=== PATIENT | male | born 1970 | race Caucasian/White ===

== ENCOUNTER 2020-08-02 14:28 | Emergency (ER) | payer BC ==
[2020-08-02 14:35] VITALS: TEMP 98.1
[2020-08-02] MEDS ORDERED: ONDANSETRON 4 MG/2 ML VIAL IVP STA (15:19)
[2020-08-02] MEDS ORDERED: KETOROLAC 15 MG/ML 1 ML VIAL IVP STA (15:19)
[2020-08-02] MEDS ORDERED: SODIUM CHLORIDE 0.9% 1,000 ML IV ONE (15:19)
[2020-08-02] MEDS ORDERED: MECLIZINE 12.5 MG TAB PO STA (15:19)
[2020-08-02 15:47] LABS: Basophils # (A) 0.1 k/uL (0-0.2); Basophils % (A) 1 %; Eosinophils # (A) 0.6 k/uL (0-0.7); Eosinophils % (A) 6 %; HCT 50.9 % (39.0-53.0); HGB 17.7 gm/dL (13.0-17.5); Lymphocytes % (A) 22 %; MCH 33.8 pg (25.0-35.0); MCHC 34.8 g/dL (31.0-37.0); MCV 97.1 fL (80.0-100.0); Mean Platelet Volume 7.2; Monocytes # (A) 0.9 k/uL (0-1.0); Monocytes % (A) 10 %; Neutrophils # (A) 5.2 k/uL (1.3-7.7); Neutrophils % (A) 59 %; Platelet Count 170 k/uL (150-450); RBC 5.24 m/uL (4.30-5.90); RDW 12.9 % (11.5-15.5); WBC 8.9 k/uL (3.8-10.6)
[2020-08-02 16:00] LABS: ALT 23 U/L (4-49); AST 29 U/L (17-59); African American GFR (CKD) >90 (>60 ml/min/1.73 sqM); Albumin 3.8 g/dL (3.5-5.0); Alkaline Phosphatase 60 U/L (38-126); Anion Gap 6 mmol/L; Blood Urea Nitrogen 10 mg/dL (9-20); Calcium 9.1 mg/dL (8.4-10.2); Carbon Dioxide 27 mmol/L (22-30); Chloride 105 mmol/L (98-107); Glucose 87 mg/dL (74-99); Non-African American GFR(CKD) 81 (>60 ml/min/1.73 sqM); Potassium 3.7 mmol/L (3.5-5.1); Sodium 138 mmol/L (137-145); Total Bilirubin 0.9 mg/dL (0.2-1.3); Total Protein 6.5 g/dL (6.3-8.2)
--- NOTE | 2020-08-02 16:06 | CT ---
EXAMINATION TYPE: CT mastoid wo con DATE OF EXAM: 08/02/2020 COMPARISON: None HISTORY: 49-year-old male Right ear drainage TECHNIQUE: Contiguous axial scanning of the temporal bones without IV contrast. Coronal reconstructio ns performed. CT DLP: 331.4 mGycm Automated exposure control for dose reduction was used. FINDINGS: Moderate mucosal thickening left maxillary sinus and mild to moderate throughout the ethmoid air cell s. Leftward nasal septal deviation. Previous resection into the right mastoid process. Air from the external auditory canal communicates with the resection cavity and also with the middle ear cavity. Mild opacification located within the resection cavity. There is soft tissue thickening of the tympanic membrane and partial soft tissue en casement of the malleus and partial opacification of the mesotympanum and infratemporal. On the right, remnant of the malleus is visualized. The normal incus is not visualized. There is a high riding right jugular bulb noted. The internal auditory canals are symmetrical. The facial nerve canals and bony labyrinths otherwise u nremarkable. On the left, there is minimal trapped fluid in the inferior left mastoid air cells. IMPRESSION: 1. ON THE RIGHT, THERE IS EVIDENCE OF PREVIOUS RESECTION INTO THE RIGHT MASTOID PROCESS. AIR FROM THE RIGHT EXTERNAL AUDITORY CANAL COMMUNICATES WITH THE RESECTION CAVITY AND THERE IS PARTIAL OPACIFICAT ION OF THE RESECTION CAVITY. 2. THE RESECTION CAVITY ALSO COMMUNICATES WITH THE MIDDLE EAR AND THERE IS PARTIAL OPACIFICATION HERE WELL. 3. 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 ONLY A REMNANT OF THE MALLEUS IS SEEN AND IS PAR TIALLY ENCASED. 4. MODERATE LEFT MAXILLARY SINUS AND BILATERAL ETHMOID SINUS DISEASE. 5. INCIDENTAL HIGH RIDING RIGHT JUGULAR BULB.
[2020-08-02] MEDS ORDERED: OFLOXACIN 0.3% OPHTH DROPS 5 ML BOTTLE RIGHT EAR STA (16:43)
[2020-08-02] MEDS ORDERED: CIPROFLOXACIN HCL 250 MG TAB PO STA (16:43)
[2020-08-02] MEDS ORDERED: ACET/COD 300 MG/30 MG STARTER PACK 6 TAB BTL PO STA (16:43)
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
[2020-08-02 17:16] VITALS: BP 124/60; PULSE 77; RESP 20
== END 2020-08-02 17:16 | disposition home or self-care (01) ==
LOC: EC 14:28
DX: H70.91 Unspecified mastoiditis, right ear (principal)
CPT/HCPCS: 36415; 93005; 80053; 85025; 87040; 70486; 99284; 96374; 96375; 96361 ×2; J2405; J1885